=== PATIENT | female | born 1995 | race Caucasian/White ===

== ENCOUNTER 2017-08-11 17:47 | Emergency (ER) | payer OTHER ==
[~2017-08-11] VITALS: Ht 154.9 cm; Wt 65.8 kg
[~2017-08-11 17:47] MED LIST: AMOXICILLIN 50500 MG PO; BACTRIM DS TAB1 EACH PO; CEFDINIR300 MG PO; NOHOMEMEDICATIONS; SINGULAIR 10 MG10 M1 PO
[2017-08-11 18:34] LABS: URINE BILIRUBIN NEGATIVE (Negative); URINE BLOOD 1+ (Negative); URINE CLARITY CLEAR; URINE COLOR YELLOW; URINE GLUCOSE-RANDOM NEGATIVE (Negative); URINE KETONES NEGATIVE (Negative); URINE LEUKOCYTES-REFLEX NEGATIVE (Negative); URINE NITRITE-REFLEX NEGATIVE (Negative); URINE PROTEIN NEGATIVE (Negative); URINE SPECIFIC GRAVITY 1.015 (1.005-1.030); URINE UROBILINOGEN 0.2 E.U./dl (0.2-1.0)
[2017-08-11 18:43] LABS: MUCUS 4-6 Moderate strn/LPF (None Seen); SQUAMOUS >10 Many /LPF (0-3)
[2017-08-11 18:44] LABS: CRYSTALS None Seen /LPF (None Seen); URINE RBC 0-2 Rare /HPF (0-2)
[2017-08-11 18:45] LABS: BACTERIA-REFLEX 1-9 Few /HPF (None Seen); CASTS None Seen /LPF (None Seen); URINE WBC-REFLEX 0-5 Rare /HPF (0-5)
[2017-08-11 19:08] LABS: ABSOLUTE BASOPHILS 0.1 thou/uL (0.0-0.2); ABSOLUTE LYMPHOCYTES 1.9 thou/uL (0.8-5.3); ABSOLUTE MONOCYTES 0.4 thou/uL (0.0-1.2); ABSOLUTE NEUTROPHILS 5.8 thou/uL (1.6-8.1); BASOPHILS 1.8 %; EOSINOPHILS 0.2 %; HEMATOCRIT 41.9 % (37.0-47.0); HEMOGLOBIN 14.1 gm/dL (12.0-15.0); LYMPHOCYTES 22.7 %; MCH 30.1 pg (26.0-34.0); MCHC 33.7 g/dL (28.0-37.0); MCV 89.2 fL (80.0-100.0); MONOCYTES 5.1 %; MPV 7.7 fl. (7.2-11.1); NUCLEATED RBCS 0 /100WBC; PLATELET COUNT* 331 thou/uL (150-400); POLYS 70.2 %; RDW-CV 13.3 % (10.5-14.5); WBC 8.3 thou/uL (4.0-11.0)
[2017-08-11 19:17] LABS: CALCIUM 8.9 mg/dL (8.5-10.1); CREATININE 0.7 mg/dL (0.6-1.3); POTASSIUM 3.8 mmol/L (3.5-5.1)
[2017-08-11 19:21] LABS: ALBUMIN 4.4 g/dL (3.4-5.0); TOTAL BILIRUBIN 0.3 mg/dL (<0.1-1.0)
[2017-08-11] MEDS ORDERED: PRENATAL PO (19:56)
[2017-08-11 20:12] VITALS: BP 127/77
== END 2017-08-11 20:16 | disposition home or self-care (01) ==
LOC: M.ERS 17:47
PROVIDERS: Physician Assistant
DX: Z32.01 Encounter for pregnancy test, result positive (principal); Z98.890 Other specified postprocedural states; Z90.89 Acquired absence of other organs; Z88.0 Allergy status to penicillin

== ENCOUNTER 2019-01-18 19:31 | Emergency (ER) | payer MEDICAID ==
[~2019-01-18] VITALS: Ht 152.4 cm; Wt 76.7 kg
[~2019-01-18 19:31] MED LIST changes: +PRENATAL PO
[2019-01-18] MEDS ORDERED: TRAMADOL 50 MG50 MG PO (20:30)
[2019-01-18] MEDS ORDERED: DOXYCYCLINE 10100 MG PO (20:30)
[2019-01-18 20:42] VITALS: BP 125/75
== END 2019-01-18 20:43 | disposition home or self-care (01) ==
LOC: M.ERS 19:31
DX: L02.415 Cutaneous abscess of right lower limb (principal); Z88.1 Allergy status to other antibiotic agents